=== PATIENT | male | born 1990 | race Caucasian/White ===

== ENCOUNTER 2021-02-01 08:56 | Emergency (ER) | payer OTHER ==
[2021-02-01 09:39] LABS: BASOPHILS % (AUTO) 0.4 %; EOSINOPHILS # (AUTO) 0.1 10^3/uL (0.0-0.7); EOSINOPHILS % (AUTO) 2.4 %; HCT - HEMATOCRIT 44.8 % (42.0-52.0); HGB - HEMOGLOBIN 15.6 g/dL (14.0-18.0); LYMPHOCYTES # (AUTO) 1.3 10^3/uL (1.5-3.5); LYMPHOCYTES % (AUTO) 28.9 %; MEAN CORPUSCULAR HEMOGLOBIN 30.6 pg (27.0-31.0); MEAN CORPUSCULAR HGB CONC 34.8 g/dL (32.0-36.0); MONOCYTES # (AUTO) 0.4 10^3/uL (0.0-1.0); MONOCYTES % (AUTO) 9.1 %; NEUTROPHILS # (AUTO) 2.7 10^3/uL (1.5-6.6); NEUTROPHILS % (AUTO) 59.2 %; PLT - PLATELET COUNT 243 10^3/uL (130-450); RED BLOOD COUNT 5.09 10^6/uL (4.70-6.10); RED CELL DISTRIBUTION WIDTH 11.9 % (12.0-15.0); WHITE BLOOD COUNT 4.5 x10^3/uL (4.8-10.8)
--- NOTE | 2021-02-01 09:39 | XRAY Report ---
PROCEDURE: Chest 1 View X-Ray INDICATIONS: Chest Pain TECHNIQUE: One view of the chest was acquired. COMPARISON: None FINDINGS: Surgical changes and devices: None. Lungs and pleura: No pleural effusions or pneumothorax. Minimal patchy left basilar opacities withou t focal consolidation. Mediastinum: Mediastinal contours appear normal. Heart size is normal. Bones and chest wall: No suspicious bony lesions. Overlying soft tissues appear unremarkable. IMPRESSION: Minimal patchy left basilar opacities likely representing atelectasis. Early airspace disease/pneumon ia not excluded. No focal consolidation at this time. Reviewed by: Mitchell Gerardo MD on 02/01/2021 9:37 AM PDT Approved by: Mitchell Gerardo MD on 02/01/2021 9:37 AM PDT Station ID: [id number]
[2021-02-01 09:43] VITALS: BP 133/94
[2021-02-01 09:55] LABS: ALBUMIN 4.9 g/dL (3.2-5.5); ALBUMIN/GLOBULIN RATIO 1.7 (1.0-2.2); BILIRUBIN,TOTAL 0.8 mg/dL (0.2-1.0); CALCIUM 9.8 mg/dL (8.5-10.3); CREATININE 0.7 mg/dL (0.6-1.2); POTASSIUM 4.5 mmol/L (3.5-5.0); TOTAL PROTEIN 7.8 g/dL (6.7-8.2)
--- NOTE | 2021-02-01 10:00 | ED Physician Documentation ---
PD HPI CHEST PAIN - Stated complaint Stated Complaint: CHEST PX - Chief complaint Chief Complaint: Cardiac - History obtained from History obtained from: Patient - Additional information Additional information: Patient comes emergency department chief complaint of right superomedial chest pain for the last few days. He states he does not know of any distinct injury. He has not been lifting weights or doing any repetitive movements. He states that certain movements make it hurt worse but that deep breaths do not. Patient denies any shortness of breath or cough. No pain anywhere else. No radiation of the pain. No fevers or chills. No nausea. No right upper quadrant pain. No other complaints at this time. No lower extremity edema, calf pain, or history of DVT. Review of Systems Ten Systems: 10 systems reviewed and negative Constitutional: reports: Reviewed and negative Eyes: reports: Reviewed and negative Ears: reports: Reviewed and negative Nose: reports: Reviewed and negative. denies: Rhinorrhea / runny nose, Congestion Throat: reports: Reviewed and negative Cardiac: reports: Chest pain / pressure Respiratory: reports: Reviewed and negative. denies: Dyspnea, Cough GI: reports: Reviewed and negative : reports: Reviewed and negative Skin: reports: Reviewed and negative Musculoskeletal: reports: Reviewed and negative Neurologic: reports: Reviewed and negative Psychiatric: reports: Reviewed and negative Endocrine: reports: Reviewed and negative Immunocompromised: reports: Reviewed and negative PD PAST MEDICAL HISTORY - Past Medical History Past Medical History: Yes Cardiovascular: None Respiratory: None Neuro: None Endocrine/Autoimmune: None GI: None : None HEENT: None Psych: None Musculoskeletal: None Derm: None - Past Surgical History Past Surgical History: Yes HEENT: Myringotomy (tubes), Tonsil/Adenoidectomy - Present Medications Home Medications: Ambulatory Orders Medication Instructions Recorded Confirmed No Known Home Medications 02/01/21 02/01/21 - Allergies Allergies/Adverse Reactions: Allergies Allergy/AdvReac Type Severity Reaction Status Date / Time lead Allergy Rash Verified 02/01/21 09:14 - Social History Does the pt smoke?: No Smoking Status: Never smoker Does the pt drink ETOH?: Yes Does the pt have substance abuse?: No - Immunizations Immunizations are current?: Yes PD ED PE NORMAL - Vitals Vital signs reviewed: Yes - General General: Alert and oriented X 3, No acute distress - HEENT HEENT: Atraumatic, PERRL, EOMI, Moist mucous membranes - Neck Neck: Supple, no meningeal sign - Cardiac Cardiac: RRR, No murmur - Respiratory Respiratory: No respiratory distress, Clear bilaterally, Other (Moderate reproducible chest wall pain with pressure exerted over her medial aspect of anterior chest wall in the right at approximately rib levels 2 through 4. No external evidence of trauma. No mass) - Abdomen Abdomen: Soft, Non tender, Non distended - Derm Derm: Normal color, Warm and dry, No rash - Extremities Extremities: No deformity, No edema, No calf tenderness / cord - Neuro Neuro: Alert and oriented X 3 - Psych Psych: Normal mood, Normal affect Results - Vitals Vitals: Vital Signs - 24 hr 02/01/21 02/01/21 09:08 09:43 Temperature 37.0 C Heart Rate 84 82 Respiratory 16 16 Rate Blood Pressure 135/85 H 133/94 H O2 Saturation 97 98 Oxygen O2 Source Room air - EKG (time done) No standard instances Rate: Rate (enter#) (normal) Rhythm: NSR [place]: Normal Intervals: Normal [place] QRS: Normal Ischemia: Normal ST segments. No: ST elevation c/w ischemia Compare to prior EKG: Old EKG unavailable Computer interpretation: Agree with computer - Labs Labs: Laboratory Tests 02/01/21 02/01/21 02/01/21 09:34 09:34 09:34 WBC 4.5 L RBC 5.09 Hgb 15.6 Hct 44.8 MCV 88.0 MCH 30.6 MCHC 34.8 RDW 11.9 L Plt Count 243 MPV 10.0 Neut # (Auto) 2.7 Lymph # (Auto) 1.3 L Pierce # (Auto) 0.4 Eos # (Auto) 0.1 Baso # (Auto) 0.0 Absolute Nucleated RBC 0.00 Nucleated RBC % 0.0 Sodium 138 Potassium 4.5 Chloride 102 Carbon Dioxide 28 Anion Gap 8.0 BUN 12 Creatinine 0.7 Estimated GFR (MDRD) 133 Glucose 107 H Calcium 9.8 Total Bilirubin 0.8 AST 21 ALT 18 Alkaline Phosphatase 41 L Troponin I High Sens < 2.3 L Total Protein 7.8 Albumin 4.9 Globulin 2.9 Albumin/Globulin Ratio 1.7 Lipase 33 - Rads (name of study) cxr Radiology: Final report received, EMP read indepedently, See rad report (Atelectasis, small, left lower lobe. Otherwise negative.) PD MEDICAL DECISION MAKING - ED course Complexity details: reviewed results, re-evaluated patient, considered different ial, d/w patient ED course: I discussed with the patient that his work-up is negative and that he is low risk for any of the serious causes of chest pain. Additionally, his symptoms point most probably toward chest wall pain. We have discussed symptomatic management and the self-limited nature of the pain. I have considered cardiovascular disease, including aortic aneurysm, coronary artery disease, and venous thromboembolism, as well as primary lung pathology. We have discussed the usual indications for return. Departure - Departure Disposition: Home, Self Care Clinical Impression: Chest wall pain Condition: Stable Instructions: ED Chest Pain Costochondritis Comments: All of your tests look pretty good. Your pain seems most consistent with a source in the musculoskeletal structures of your chest wall. You may use anti- inflammatories, ice, and stretching to help with this. Please see your doctor if you are not feeling better in the next 2 weeks. Discharge Date/Time: 02/01/21 10:20
== END 2021-02-01 10:20 | disposition home or self-care (01) ==
LOC: ED 08:56
DX: R07.89 Other chest pain (principal)
CPT/HCPCS: 36415; 80053; 83690; 84484; 85025; 93005; 99284

== ENCOUNTER 2023-01-03 18:55 | Emergency (ER) | payer OTHER ==
--- NOTE | 2023-01-03 19:55 | ED Physician Documentation ---
PD HPI UPPER EXT INJURY - Stated complaint Stated Complaint: L HAND LAC - Chief complaint Chief Complaint: Ext Problem - History obtained from History obtained from: Patient - History of Present Illness Location: Left, Finger - Additonal information Additional information: Pt is a 32 yo with laceration to L thumb that occurred just prior to arrival. Pt was cutting onions for tacos with kitchen knife. [employer], tetanus is UTD. Not on blood thinners. Review of Systems Constitutional: denies: Fever Cardiac: denies: Chest pain / pressure Respiratory: denies: Dyspnea Skin: reports: Laceration (s) PD PAST MEDICAL HISTORY - Past Medical History Cardiovascular: None Respiratory: None Neuro: None Endocrine/Autoimmune: None GI: None : None HEENT: None Psych: None Musculoskeletal: None Derm: None - Past Surgical History Past Surgical History: Yes HEENT: Myringotomy (tubes), Tonsil/Adenoidectomy - Present Medications Home Medications: Ambulatory Orders Medication Instructions Recorded Confirmed No Known Home Medications 02/01/21 02/01/21 - Allergies Allergies/Adverse Reactions: Allergies Allergy/AdvReac Type Severity Reaction Status Date / Time lead Allergy Rash Verified 02/01/21 09:14 - Social History Does the pt smoke?: No Smoking Status: Never smoker Does the pt drink ETOH?: Yes Does the pt have substance abuse?: No - Immunizations Immunizations are current?: Yes PD ED PE NORMAL - General General: Alert and oriented X 3, No acute distress, Well developed/nourished - HEENT HEENT: Atraumatic - Cardiac Cardiac: Strong equal pulses - Respiratory Respiratory: No respiratory distress - Extremities Extremities: Normal ROM s pain, Other (1 cm laceration to distal volar surface of L thumb; no nailbed involvement, normal ROM at all joints, brisk cap refill) Results - Vitals Vitals: Vital Signs - 24 hr 01/03/23 01/03/23 18:58 20:07 Temperature 36.5 C 36.7 C Heart Rate 102 H 89 Respiratory 20 20 Rate Blood Pressure 150/100 H 120/69 O2 Saturation 100 100 Oxygen O2 Source Room air Procedures - Laceration (location) L thumb Length in cm: 1 Wound type: Linear, Clean Neurovascular status: Sensory intact, Motor intact, Vascular intact Tendon involvement: Tendon intact Anesthesia: Lidocaine 1% Wound preparation: Hibiclens, Irrigated copiously NS Skin layer closure: Size #-0 - enter number (4), Sutures - enter # (2) Other: Patient tolerated well, No complications, Neurovascular intact, Dressing applied, Tetanus UTD PD Medical Decision Making - ED course ED course: Pt with laceration to L thumb. No foreign body. NO nerve, tendon, vascular injury. Wound cleaned and sutured. Pt tolerated well. Tetanus is UTD. Pt aware of wound care instructions and need for suture removal. Aware of return precautions. Departure - Departure Disposition: 01 Home, Self Care Clinical Impression: Laceration of left thumb Condition: Stable Instructions: ED Laceration Hand Follow-Up: VIRGINIA Barrios [Provider Group] Comments: You have a laceration to your left thumb that was closed with 2 stitches. We have placed a dressing which should be kept on for the next 24 hours. The stitches should stay in place for 7 to 10 days. You can follow-up in the ER or see your flight surgeon to have the stitches removed. Please take caution with this wound given the location. Please make sure to keep the wound clean and dry. If you develop any worsening symptoms such as redness, swelling, increased pain or have any concerns please return to the emergency department sooner. Discharge Date/Time: 01/03/23 20:08
[2023-01-03 20:13] VITALS: BP 120/69
== END 2023-01-03 20:08 | disposition home or self-care (01) ==
LOC: ED 18:55
DX: S61.012A Laceration without foreign body of left thumb without damage to nail, initial encounter (principal); W26.0XXA Contact with knife, initial encounter; Y93.G1 Activity, food preparation and clean up
CPT/HCPCS: 12001; 99282